=== PATIENT | male | born 1945 | race Caucasian/White ===

== ENCOUNTER 2016-05-09 21:35 | Observation (INO) | payer OTHER ==
[2016-05-09] MEDS ORDERED: fentaNYL 100 MCG/2 ML INJ IVP ONE (22:06)
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
[2016-05-09] MEDS ORDERED: NS 1,000 ML IV ONE (22:34)
[2016-05-09] MEDS ORDERED: HYDROmorphONE/DILAUDID 2 MG/ML SYR ONE (22:48)
[2016-05-09] MEDS ORDERED: HYDROmorphONE/DILAUDID 1 MG/ML SYR IVP ONE (22:49)
[2016-05-09] MEDS ORDERED: ONDANSETRON 4 MG/2 ML VIAL IVP ONE (23:12)
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
--- NOTE | 2016-05-09 23:56 | CT ---
CT of the Facial Bones (Without Contrast) Clinical Indications: Pain following trauma. There is bruising around the right orbit. Technique: Noncontrast axial images were obtained through the facial bones at 1.00 mm thickness. Sag ittal and coronal reformations are performed. Examination is reviewed on the workstation at multiple window and level settings. Dose reduction techniques were utilized. Findings: There is a complex tripod fracture on the right side. Depressed and comminuted fractures ar e seen involving the anterior and posterior ramírez of the right maxillary sinus. There is also a fract ure involving the floor of the right orbit. There is no herniation of orbital contents. There is disp laced fracture of the right zygomatic arch. The pterygoid plates are intact. There is a comminuted an d displaced fracture of the lateral wall of the right orbit. The fracture extends superiorly over the top of the orbit involving the right frontal bone and extends into the right frontal sinus laterally and extends through the back wall. There is also a component of the orbital fracture that involves t he calvarium with mild displacement of the temporal bone laterally in the right middle cranial fossa. The right orbital apex is intact. There is near complete opacification of the right maxillary sinus. Minimal fluid is seen in other paranasal sinuses. There is minimal opacification of the right latera l aspect of the frontal sinus associated with the frontal sinus fracture. The fracture does extend th rough the posterior wall of the frontal sinus. No significant pneumocephalus is identified. Impression: Complex tripod fracture as detailed above involving the right maxillary sinus, right orbi t, right zygomatic arch with a component of fracture of the right frontal bone and extending into the right frontal sinus. There is also a minimally displaced calvarial fracture involving the right temp oral bone on the lateral wall of the middle cranial fossa. Minimal pneumocephalus is seen. No intracr anial hemorrhage is identified. A preliminary report was called to Dr. Shana Begum at 2350 hours in the Emergency Department.
[2016-05-09 23:59] LABS: % IMMATURE GRANULYOCYTES 0.2 % (0.0-1.1); ABSOLUTE IMMATURE GRANULOCYTES 0.02 10^3/uL (0.00-0.10); ADD DIFF? NO; ADD MORPH? NO; ADD SCAN? NO; ATYPICAL LYMPHOCYTE FLAG 0 (0-99); FRAGMENT RBC FLAG 0 (0-99); HEMATOCRIT 47.4 % (40.0-51.0); LEFT SHIFT FLG 0 (0-99); LIPEMIA HEMOLYSIS FLAG 90 (0-99); MEAN CELL HEMOGLOBIN 30.7 pg (27.9-34.1); MEAN CELL HEMOGLOBIN CONCENTR. 33.8 g/dL (32.4-36.7); MEAN CELL VOLUME 90.8 fL (81.5-99.8); MEAN PLATELET VOLUME 10.5 fL (8.7-11.7); PLATELET CLUMPS FLAG 10 (0-99); PLATELET COUNT 275 10^3/uL (150-400); RED BLOOD CELL COUNT 5.22 10^6/uL (4.40-6.38); RED CELL DISTRIBUTION WIDTH 12.8 % (11.5-15.2)
[2016-05-10] MEDS ORDERED: HYDROmorphONE/DILAUDID 1 MG/ML SYR IVP ONE (00:01)
[2016-05-10] MEDS ORDERED: ONDANSETRON 4 MG/2 ML VIAL ONE (00:05)
[2016-05-10 00:08] LABS: ANION GAP 15 mEq/L (8-16); CALCIUM 9.5 mg/dL (8.5-10.4); CARBON DIOXIDE 25 mEq/l (22-31); CHLORIDE 104 mEq/L (97-110); CREATININE 1.3 mg/dL (0.7-1.3); ETHANOL SERUM 151 mg/dL (0-10); GLOMERULAR FILTRATION RATE 54; GLUCOSE 112 mg/dL (70-100); POTASSIUM 3.7 mEq/L (3.5-5.2); SODIUM 144 mEq/L (134-144)
[2016-05-10] MEDS ORDERED: ONDANSETRON 4 MG/2 ML VIAL IVP ONE (00:18)
[2016-05-10] MEDS ORDERED: NS 1,000 ML IV ONE (01:19)
[2016-05-10] MEDS ORDERED: ONDANSETRON 4 MG/2 ML VIAL IVP PRN (01:34)
[2016-05-10] MEDS ORDERED: KETOROLAC 30 MG/1 ML SDV IVP PRN (01:45)
[2016-05-10] MEDS ORDERED: BACITRACIN ZINC 14.2 GM OINTTUBE TP SCH (01:45)
[2016-05-10] MEDS ORDERED: LR 1,000 ML IV SCH (02:00)
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
[2016-05-10] MEDS: ACETAMINOPHEN 500 MG TAB PO SCH ×2 (05:29→14:11)
[2016-05-10] MEDS ORDERED: ceFAZolin 1 GM VIAL IVP SCH (06:00)
[2016-05-10] MEDS ORDERED: ceFAZolin 2 GM/DEXTROSE 100 ML IV SCH (06:00)
[2016-05-10] MEDS ORDERED: ACETAMINOPHEN 325 MG TAB PO SCH (06:00)
[2016-05-10 07:14] VITALS: PULSE 69; RESP 16; TEMP 98.3
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
[2016-05-10] MEDS ORDERED: NEOSPORIN OPHT OINT 3.5GM OP SCH (09:00)
[2016-05-10] MEDS ORDERED: PANTOPRAZOLE SODIUM 40 MG VIAL IVP SCH (09:00)
[2016-05-10] MEDS ORDERED: DICYCLOMINE 20 MG TAB PO PRN (09:45)
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
[2016-05-10 11:29] VITALS: BP 118/66; O2SAT 94
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
[2016-05-10] MEDS ORDERED: ceFAZolin 2 GM in D5W 100 ML IV SCH (14:00)
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
--- NOTE | 2016-05-14 13:09 | GCON ---
[f rep st] CONSULTATION DATE OF CONSULTATION: 05/11/2016 CHIEF COMPLAINT: Facial fracture. HISTORY OF PRESENTING COMPLAINT: The patient is a 71-year-old man, who fell off his son's scooter a nd sustained a blow to the right side of his face. PAST MEDICAL HISTORY: Generally unremarkable. He is a healthy nonsmoker. EXAMINATION: HEENT: He is pleasant, healthy-looking 71-year-old man with abrasions, lacerations an d bruising to the right side of his face and periorbital region. The laceration just lateral to the right orbit has been repaired. Abrasion is present, has appropriate bacitracin ointment on it. Hi s eye is very swollen, but he is able to see out. Extraocular movements appear to be normal, but th at is a little bit interfered with by the degree of swelling. There is no diplopia. The cheek bone does not appear to be visibly depressed and there is a little too much swelling for me to feel a st ep deformity on the infraorbital rim. He does not have trismus, and his occlusion is good. Infraor bital nerve sensation seems to be normal. IMAGING: CAT scan does show a typical tripod fracture pattern with orbital fractures as expected, b ut no evidence of orbital contents herniating through the fractures. The degree of depression of th e bones looks pretty minimal on the CAT scan. IMPRESSION AND PLAN: This is a typical tripod fracture, which does not appear at the moment to have any absolute indications for surgery. Once swelling has come down, will be able to definitively co nfirm that there are no problems with the orbit and that the appearance of the cheekbone is satisfac tory. I expect given this man's good general health that he will be discharged soon and will be abl e to see him in the office early next week. /[id number]/MODL
== END 2016-05-10 14:15 | disposition home or self-care (01) ==
LOC: EDUNIT# → INTOOBSV 05-10 00:22 → F3N 05-10 02:23
PROVIDERS: ADMIT Surgery; ATTEND Surgery
PROC: 0HQ1XZZ Repair Face Skin, External Approach (ICD-10-PCS; principal; 2016-05-10)
DX: S02.40EA Zygomatic fracture, right side, initial encounter for closed fracture (principal); S02.40CA Maxillary fracture, right side, initial encounter for closed fracture; S02.0XXA Fracture of vault of skull, initial encounter for closed fracture; S02.19XA Other fracture of base of skull, initial encounter for closed fracture; S01.81XA Laceration without foreign body of other part of head, initial encounter; R40.2410 Glasgow coma scale score 13-15, unspecified time; G93.89 Other specified disorders of brain; V00.141A Fall from scooter (nonmotorized), initial encounter; Y92.414 Local residential or business street as the place of occurrence of the external cause
CPT/HCPCS: 12011; 70450; 70486; 72125; 97161; 97165; G0378; G8978; G8979; G8980; G8987; G8988; G8989; 96365; G0480; J0690; J1170; J1885; J2405; J3010

== ENCOUNTER 2016-08-02 10:45 | Emergency (ER) | payer OTHER ==
[2016-08-02 11:08] VITALS: RESP 18; TEMP 97.7
--- NOTE | 2016-08-02 12:01 | EDPHY ---
H & P Stated Complaint: R groin pain post hard BM, hx hernia Time Seen by Provider: 08/02/16 11:47 HPI/ROS: CHIEF COMPLAINT: Right groin and testicle pain HISTORY OF PRESENT ILLNESS: This is a 71-year-old male presenting to the emergency department complaining of right groin and intermittent testicular pain. Patient states symptoms started 2 hours ago in an attempt to have a bowel movement due to constipation. Patient states he has had constipation for 2 days without difficulty urinating, no fever nausea vomiting. Denies any other complaints REVIEW OF SYSTEMS: Constitutional: No fever, no chills. Eyes: No discharge. ENT: No sore throat. Cardiovascular: No chest pain, no palpitations. Respiratory: No cough, no shortness of breath. Gastrointestinal: right groin pain, no vomiting. Genitourinary: No hematuria. No dysuria. Right testicular intermittent tenderness. Musculoskeletal: No back pain. Skin: No rashes. Neurological: No headache. Source: Patient - Medical/Surgical History Hx Asthma: No Hx Chronic Respiratory Disease: No Hx Diabetes: No Hx Cardiac Disease: No Hx Renal Disease: No Hx Cirrhosis: No Hx Alcoholism: No Hx HIV/AIDS: No Hx Splenectomy or Spleen Trauma: No Other PMH: PMH:colon polyps, diverticulosis, hernia. PSH:back surgery - Social History Smoking Status: Former smoker - Physical Exam Exam: General Appearance: Alert, no distress. Eyes: no pallor or injection. ENT, Mouth: Mucous membranes moist. Respiratory: There are no retractions, lungs are clear to auscultation. Cardiovascular: Regular rate and rhythm. Gastrointestinal: Abdomen is soft and nontender. Right inguinal tenderness on palpation no masses, bowel sounds normal. Right testicle tenderness no swelling noted Neurological: No focal deficits Skin: Warm and dry, no rashes. Extremities: symmetrical, full range of motion. Psychiatric: Patient is oriented X 3, there is no agitation. Constitutional: Initial Vital Signs Temperature (C) 36.5 C 08/02/16 11:06 Heart Rate 67 08/02/16 11:06 Respiratory Rate 18 08/02/16 11:06 Blood Pressure 137/80 H 08/02/16 11:06 O2 Sat (%) 96 08/02/16 11:06 O2 Delivery Mode Room Air Allergies/Adverse Reactions: No Known Allergies Allergy (Verified 08/02/16 11:05) Home Medications: Medication Instructions Recorded Dicyclomine HCl 20 mg PO Q4 PRN 05/10/16 Medical Decision Making - Diagnostics Imaging Results: Imaging Impressions Extremity Ultrasound 08/02/16 11:58 Impression: Inguinal hernia on the right containing omental fat that increased with Valsalva and reduced with compression. Findings discussed with Lianna John NP at 13:17 hour, 08/02/2016. Testicular Ultrasound 08/02/16 11:59 Impression: Small incidental 5 mm cyst right testicle. Otherwise, normal testicular ultrasound. ED Course/Re-evaluation: Discussed the plan of care: Ultrasound right inguinal and right testicle 1315: Spoke with Dr. Aceves, Impression: Inguinal hernia on the right containing omental fat that increased with Valsalva and reduced with compression. 1330: Discussed ultrasound findings with patient. He will follow up with his primary care physician this coming week. We also discussed taking stool softener or MiraLax to help decrease constipation, and no strenuous activity as this can make the hernia worse. 1335: Discussed all discharge instructions---> stable, discharge home Differential Diagnosis: Other differential diagnosis considered but not limited to testicular torsion, incarcerated inguinal hernia and epididymitis Departure - Departure Disposition: Home, Routine, Self-Care Clinical Impression: Inguinal hernia of right side without obstruction or gangrene Condition: Good Instructions: Inguinal Hernia (ED) Additional Instructions: Discussed discharge instructions and findings with patient 1. Decrease any strenuous activity or bearing down 2. I would recommend taking stool softener or MiraLax to decrease constipation 3. Follow up with your primary care provider this coming week 4. If any symptoms worsen increased pain, nausea vomiting unable to have a bowel movement for several days return to the emergency department Referrals: GOPAL CARVALHO [Primary Care Provider] - As per Instructions
[2016-08-02 14:05] VITALS: BP 138/82; PULSE 56; O2SAT 95
== END 2016-08-02 14:05 | disposition home or self-care (01) ==
DX: K40.90 Unilateral inguinal hernia, without obstruction or gangrene, not specified as recurrent (principal); Z87.891 Personal history of nicotine dependence

== ENCOUNTER → 2017-07-30 | Outpatient (CLI) | payer OTHER | LOC: FIMAGING 12:37 | PROVIDERS: ATTEND Family Medicine | DX: Z13.6 Encounter for screening for cardiovascular disorders (principal); R91.8 Other nonspecific abnormal finding of lung field; E78.5 Hyperlipidemia, unspecified; J45.909 Unspecified asthma, uncomplicated; Z87.891 Personal history of nicotine dependence; I25.10 Atherosclerotic heart disease of native coronary artery without angina pectoris; M47.9 Spondylosis, unspecified; K76.0 Fatty (change of) liver, not elsewhere classified ==